=== PATIENT | female | born 1980 | race Caucasian/White ===

== ENCOUNTER 2021-02-06 12:12 | Emergency (ER) | payer BC ==
[~2021-02-06] VITALS: Ht 167.6 cm; Wt 172.4 kg
--- NOTE | 2021-02-06 12:25 | NUR ---
BIBSELF C/O LEFT SHOULDER AND ARM TINGLING STARTED TODAY, HX OF SHOULDER INJURY 11 YEARS AGO WHILE LIFTING WIEGHTS. PT VITALS ARE WITHIN NORMAL LIMITS. BREATHING IS EVEN AND UNLABORED. LAB AT BEDSIDE.
--- NOTE | 2021-02-06 12:54 | NUR ---
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
[2021-02-06 13:02] LABS: BASOPHILS # (AUTO) 0.1 K/uL (0.0-0.2); BASOPHILS % (AUTO) 0.5 % (0.0-2.0); EOSINOPHILS % (AUTO) 3.6 % (0.0-6.0); HEMATOCRIT 42 % (33-45); HEMOGLOBIN 13.4 g/dL (11.5-14.8); LYMPHOCYTES # (AUTO) 3.4 K/uL (0.8-4.8); LYMPHOCYTES % (AUTO) 26.2 % (20.0-44.0); MEAN CORPUSCULAR HGB CONC 32 g/dl (31.0-36.0); MEAN CORPUSCULAR VOLUME 82 fL (82-100); MONOCYTES # (AUTO) 0.8 K/uL (0.1-1.30); MONOCYTES % (AUTO) 6.4 % (2.0-12.0); NEUTROPHILS # (AUTO) 8.2 K/uL (1.8-8.9); NEUTROPHILS % (AUTO) 63.3 % (43.0-81.0); PLATELET COUNT (AUTO) 380 K/uL (150-450); RED BLOOD CELL COUNT(AUTO) 5.16 MIL/uL (4.0-5.2)
[2021-02-06 13:08] LABS: CALCIUM, SERUM 8.8 mg/dL (8.5-10.1); CARBON DIOXIDE 31 mmol/L (21-32); CHLORIDE 102 mmol/L (98-107); CREATININE 0.8 mg/dL (0.6-1.3); GLUCOSE 148 mg/dL (74-106); POTASSIUM 4.2 mmol/L (3.5-5.1); SODIUM SERUM 140 mmol/L (136-145); UREA NITROGEN, BLOOD 13 mg/dL (7-18)
--- NOTE | 2021-02-06 16:30 | NUR ---
LABS AT BEDSIDE
[2021-02-06 17:54] VITALS: BP 143/93
--- NOTE | 2021-02-06 17:54 | NUR ---
Patient discharged to home in stable condition. Written and verbal after care instructions given. Patient verbalizes understanding of instruction.
== END 2021-02-06 17:56 | disposition home or self-care (01) ==
LOC: ER 12:16
DX: R20.0 Anesthesia of skin (principal); R07.89 Other chest pain; J45.909 Unspecified asthma, uncomplicated
CPT/HCPCS: 36415; 71045-TC; 80048-TC; 84484-TC; 85025-TC